=== PATIENT | male | born 1955 | race African-American/Black ===

== ENCOUNTER 2023-06-19 12:53 | Emergency (ER) | payer MEDICARE, SELFPAY ==
[2023-06-19 13:02] VITALS: BP 168/103
[2023-06-19 15:20] LABS: Glucose - Point of Care 191 mg/dl (70-99)
--- NOTE | 2023-06-19 15:37 | ED.GENMED ---
History of Present Illness
General
Chief Complaint: Visual Problem
Source: patient
Time Seen by Provider: 06/19/23 14:11
Travel History
Have you had any contact with someone who has COVID-19?: No
Do you have any symptoms of coronavirus? Fever > 100 degrees, chills, cough, shortness of breath, sore throat, loss of taste or smell, muscle aches, or headache?: No
History of Present Illness
History of Present Illness:
67-year-old male presents to the emergency room complaining of blurred vision. The vision changes with binocular vision and also with each individual eye. He has been having this symptom for the past couple days. The blurriness began after his
primary care doctor took retinal pictures. Symptoms seem somewhat better today but still not back to his baseline. He states that he did not have any drops instilled for the pictures.
Phy Exam
Physical Exam
Physical Exam:
General: Awake, Alert, Oriented X3. No acute distress.
Vitals: unremarkable
Head: Atraumatic
Eyes: Pupils equal, EOMI. visual acuity 20/20 bilaterally. Slit-lamp exam unremarkable. No uptake of fluorescein. Intraocular pressure 18 on the right, 14 on the left
Throat: Airway intact, no exudates
Neck: Trachea midline
Lungs: Clear and equal b/l
Heart: Regular rate, no murmurs
Abd: Soft, Nontender, No pulsatile mass
Neuro: Nonfocal
Skin: Warm, dry, no rash
Extremities: pulses equal b/l, no edema
Course
Orders/Labs/Results
Orders:
Orders
06/19/23 14:59
Fluorescein Sodium [Ful-Milena] 2 mg .ROUTE .STK-MED ONE
Purified Water Eye Wash [Dacriose Eye Wash Solution] 120 ml .ROUTE .STK-MED ONE
Tetracaine HCl [Tetracaine 0.5% Ophthalmic Solution] 1 drop .ROUTE .STK-MED ONE
06/19/23 15:13
Bedside Glucose- Treatment ONCE
Abnormal Lab Results
06/19/23
15:18
POC Glucose 191 H mg/dl
(70-99)
Vital Signs
Initial and Last Documented VS:
Initial Vital Signs
Temp Pulse Resp BP Pulse Ox
98.1 F 65 16 168/103 98
06/19/23 13:02 06/19/23 13:02 06/19/23 13:02 06/19/23 13:02 06/19/23 13:02
Last Documented Vital Signs
Temp Pulse Resp BP Pulse Ox
98.1 F 63 18 161/79 99
06/19/23 13:02 06/19/23 15:59 06/19/23 15:59 06/19/23 15:59 06/19/23 15:59
MDM/Problems Addressed
Differential Diagnosis Includes:
Corneal abrasion, iritis
MDM/Problems Addressed:
No clear physical exam abnormalities. Discussed with ophthalmology. They cannot think of any reason the patient with blurred vision after retinal imaging. However they be happy to see her in the office tomorrow. Given visual acuity of 20/20 this
seems quite reasonable.
*Pulse Oximetry
Patient hypoxic: no
*Critical Care Note
Total Time (30-74mins, 75-104mins- exclusive of procedures): Not Applicable
ED Attending Note
-
Portions of this chart may have been created with voice recognition software.� Occasional wrong word or��sound alike� substitutions may have occurred due to the inherent limitations of voice recognition software.
Discharge Plan
Departure
Patient Disposition: Home (Routine Discharge)
Date of Disposition: 06/19/23
Time of Disposition: 15:37
Patient with high blood pressure during this ER visit?: Yes
Condition: Good
Discharge Problem:
Blurred vision, bilateral
Prescriptions:
No Action
doxycycline monohydrate 100 mg capsule
100 mg PO BID Qty: 20 1RF
metformin 500 mg tablet
500 mg PO BID Qty: 60 0RF
ibuprofen 800 mg tablet
800 mg PO QIDPRN PRN (Reason: pain, fever) Qty: 30 0RF
meclizine 25 mg tablet
25 mg PO TID PRN (Reason: dizziness) Qty: 20 0RF
prednisone 20 mg tablet
40 mg PO DAILY 5 Days Qty: 10 0RF
prednisone 50 mg tablet
50 mg PO DAILY Qty: 5 0RF
metformin 500 mg tablet
500 mg PO BID Qty: 14 0RF
Referrals:
Chantal Jade MD [Active] -
Barbie Avila DO [Family Provider] -
Stand Alone Forms: Return to Work
Activity Restrictions/Additional Instructions:
Please follow up with Dr. Jade...call the office first thing in the morning.
Interventions
Interventions:
*Risk Screen - Suicide Last Done: 06/19/23 13:02
*General Assessment Last Done: 06/19/23 14:08
*Neglect/Abuse Screening Last Done: 06/19/23 13:02
ED- Fall Risk Assessment Last Done: 06/19/23 14:08
*ED COVID-19 Vaccine History Last Done: 06/19/23 13:02
*Nursing Disposition Last Done: 06/19/23 16:01
ED- Neurological Assessment Last Done: 06/19/23 14:08
ED-EENT Assessment Last Done: 06/19/23 15:20
ED Swallowing Screen Last Done: 06/19/23 14:08
Discharge Date and Time
Discharge Date/Time: 06/19/23 16:08
[2023-06-19 15:59] VITALS: BP 161/79
== END 2023-06-19 16:08 | disposition home or self-care (01) ==
LOC: EMR 12:53
PROVIDERS: EMERGENCY PHYSICIAN Emergency Medicine; FAMILY PHYSICIAN Family Medicine
DX: H53.8 Other visual disturbances (principal)
CPT/HCPCS: 99282; 82962